=== PATIENT | male | born 1985 | race Caucasian/White ===

== ENCOUNTER 2024-02-28 23:15 | Emergency (ER) | payer OTHER ==
[~2024-02-28] VITALS: Ht 177.8 cm; Wt 72.7 kg
[2024-02-28] MEDS: LIDOcaine 1% W/epiNEPHrine 1:100,000 20ml vial IJ ONE (23:45)
[2024-02-28] MEDS: bacitracin 15gm ointment TP ONE (23:45)
[2024-02-29] MEDS: amox tr/potassium clavulanate 875/125mg TAB PO ONE (00:29)
[2024-02-29] MEDS: ondansetron 4mg rapidly disintigrating tab PO ONE (00:30)
[2024-02-29] MEDS: HYDROcodone/acetaminophen 5mg/325mg tablet PO ONE (00:30)
[2024-02-29] MEDS ORDERED: AMOX-419 PO (01:27)
[2024-02-29 01:44] VITALS: BP 105/66; PULSE 82; TEMP 98; O2SAT 99
[2024-02-29 01:46] VITALS: RESP 18
== END 2024-02-29 01:51 | disposition home or self-care (01) ==
LOC: ER 23:17
DX: S81.812A Laceration without foreign body, left lower leg, initial encounter (principal); W55.41XA Bitten by pig, initial encounter; Y93.89 Activity, other specified; Y92.89 Other specified places as the place of occurrence of the external cause; Y99.8 Other external cause status
CPT/HCPCS: 12004; 73590; 99284